=== PATIENT | female | born 1975 | race Caucasian/White ===

== ENCOUNTER → 2016-09-07 | Outpatient (CLI) | payer MEDICAID ==
[~2016-09-07] MED LIST: ALBUTEROL0.09 MG/A2 INH; AMOXICILLIN500 MG PO; ANAPROX DS550 MG PO; ATIVAN0.5 MG PO; ATIVAN1 MG PO; AUGMENTIN 875-875 MG PO; AUGMENTIN 875875 MG PO; BACTRIM DS 8001 TA1 PO; CIPROFLOXACIN500 MG PO; FLEXERIL5 MG PO; METOPROLOL SUCC25 M2 PO; MOBIC15 MG PO; MOTRIN800 MG PO; Meclizine25 MG PO; NKHM; NORCO 325 MG-51 TAB PO; PARAFON FORTE500 MG PO; PEPCID20 MG PO; PHENERGAN W/DM120 ML PO; PREDNICOT10 MG PO; PREDNICOT20 MG PO; PREVACID15 M1 PO; PREVACID30 M1 PO; PREVACID30 MG PO; PROAIR HFA0.09 MG/AC INH; ROBITUSSIN AC 110 ML PO; TRAMADOL HCL50 MG PO; VIIBRYD40 PO; VISTARIL25 M1 PO; VITAMIN D32000 UNIT PO; VITAMIN D50000 I3 PO; VOLTAREN50 M1 PO; XANAX0.25 MG PO; ZANTAC15 MG/ML PO; ZITHROMAX Z PA250 MG PO; ZOFRAN4 MG PO; Zofran4 MG PO
[2016-09-07 10:27] LABS: C-REACTIVE PROTEIN 0.59 MG/DL (0-0.3); FREE THYROXIN INDEX/T7 2.7 (1.5-5.4); THYROXINE (T4) TOTAL 8.4 ug/dl (4.8-13.9); URIC ACID 4.6 mg/dL (2.6-6.0)
[2016-09-07 10:35] LABS: THYROID STIM HORMONE (HS) 2.18 uIU/ml (0.358-4.75)
[2016-09-08 07:12] LABS: RHEUMATOID ARTHRITIS FACTOR <10.0 IU/mL (0.0-13.9)
[2016-09-08 21:05] LABS: LUPUS DRVVT 42.3 sec (0.0-44.0); LUPUS REFLEX INTERPRETATION Comment: (.); PTT-LA 36.1 sec (0.0-43.6)
== END | disposition home or self-care (01) ==
LOC: LAB 09:28
PROVIDERS: Emergency Medicine
DX: R53.83 Other fatigue (principal)

== ENCOUNTER → 2017-09-29 | Outpatient (CLI) | payer OTHER | END | disposition home or self-care (01) | LOC: RAD 12:43 | DX: M25.512 Pain in left shoulder (principal) ==

== ENCOUNTER → 2018-05-03 | Outpatient (CLI) | payer OTHER | END | disposition home or self-care (01) | LOC: RAD 10:30 | DX: M43.8X2 Other specified deforming dorsopathies, cervical region (principal); M25.512 Pain in left shoulder; M79.602 Pain in left arm; R20.0 Anesthesia of skin; M54.6 Pain in thoracic spine ==

== ENCOUNTER 2018-09-13 19:25 | Emergency (ER) | payer OTHER ==
[~2018-09-13] VITALS: Ht 162.5 cm; Wt 79.4 kg
[2018-09-13 19:29] VITALS: BP 109/73
[2018-09-13 20:09] LABS: ALBUMIN 3.3 gm/dl (3.1-4.5); ALKALINE PHOSPHATASE 96 U/L (45-117); BUN 10 mg/dl (7-24); CHLORIDE 104 mmol/L (98-107); CREATININE 0.66 mg/dL (0.55-1.02); LIPASE 40 U/L (73-393); POTASSIUM 3.1 mmol/L (3.5-5.1); SGOT/AST 15 IU/L (3-35); SGPT/ALT 20 U/L (12-78); SODIUM 138 mmol/L (136-145); TOTAL PROTEIN 7.2 gm/dL (6.4-8.2)
[2018-09-13 20:31] LABS: BASO % 0.2 % (0.0-1.0); EOS % 0.2 % (1.0-4.0); HEMATOCRIT 42.1 % (37.0-47.0); HEMOGLOBIN 13.5 g/dl (12.0-16.0); LYMPH # 0.8 10*3/uL (1.3-4.4); LYMPH % 7.3 % (27.0-41.0); MEAN CELL VOLUME 81.7 fl (81.0-99.0); MEAN CORPUSCULAR HGB 26.2 pg (27.0-31.0); MEAN CORPUSCULAR HGB CONC 32.1 g/dl (33.0-37.0); MONO # 0.8 10*3/uL (0.1-1.0); MONO % 7.6 % (3.0-9.0); NEUT # 8.9 10*3/uL (2.3-7.9); NEUT % 84.3 % (47.0-73.0); PLATELET COUNT AUTOMATED 249 10*3/uL (130-400); RED BLOOD COUNT 5.15 10*6/uL (4.10-5.10); RED CELL DISTRI WIDTH 13.7 % (0-14.5); WHITE BLOOD COUNT 10.6 10*3/uL (4.8-10.8)
== END 2018-09-13 21:05 | disposition home or self-care (01) ==
LOC: ED 19:25
PROVIDERS: Student in an Organized Health Care Education/Training Program
DX: R11.2 Nausea with vomiting, unspecified (principal); R19.7 Diarrhea, unspecified; R52 Pain, unspecified; J45.909 Unspecified asthma, uncomplicated; E78.5 Hyperlipidemia, unspecified; Z91.048 Other nonmedicinal substance allergy status; Z88.8 Allergy status to other drugs, medicaments and biological substances; Z79.2 Long term (current) use of antibiotics; Z90.49 Acquired absence of other specified parts of digestive tract; Z87.891 Personal history of nicotine dependence

== ENCOUNTER 2022-11-25 08:48 | Emergency (ER) | payer BC ==
[~2022-11-25] VITALS: Ht 162.5 cm; Wt 67.6 kg
[2022-11-25 09:59] LABS: BASO % 0.4 % (0.0-1.0); EOS # 0.1 10*3/uL (0.0-0.4); EOS % 1.2 % (1.0-4.0); HEMATOCRIT 44.2 % (37.0-47.0); LYMPH # 1.5 10*3/uL (1.3-4.4); LYMPH % 18.7 % (27.0-41.0); MEAN CELL VOLUME 81.3 fl (81.0-99.0); MEAN CORPUSCULAR HGB 26.7 pg (27.0-31.0); MEAN CORPUSCULAR HGB CONC 32.8 g/dl (33.0-37.0); MEAN PLATELET VOLUME 9.8 fl (9.6-12.3); MONO # 0.8 10*3/uL (0.1-1.0); MONO % 9.5 % (3.0-9.0); NEUT # 5.6 10*3/uL (2.3-7.9); NEUT % 69.8 % (47.0-73.0); PLATELET COUNT AUTOMATED 355 10*3/uL (130-400); RED BLOOD COUNT 5.44 10*6/uL (4.10-5.10); RED CELL DISTRI WIDTH 13.9 % (0-14.5)
[2022-11-25 10:20] LABS: BILIRUBIN Negative (Negative); BLOOD 3+ (Negative); CLARITY Clear (Clear); COLOR Yellow (Yellow); GLUCOSE Negative (Negative); KETONE Trace (Negative); LEUKO ESTERASE Negative (Negative); NITRITE Negative (Negative); SPECIFIC GRAVITY >= 1.030 (1.001-1.030)
[2022-11-25 10:23] LABS: ALKALINE PHOSPHATASE 68 U/L (46-116); BUN 11 mg/dl (9-23); CHLORIDE 103 mmol/L (98-107); CPK 37 U/L (34-171); POTASSIUM 3.4 mmol/L (3.4-5.1); SGPT/ALT 11 U/L (10-49); TOTAL PROTEIN 7.5 gm/dL (6.0-8.0)
[2022-11-25 10:24] LABS: BETA-HCG, QUANT < 3.0 mIU/mL (3-10); ETHYL ALCOHOL < 3.0 mg/dl (<3)
[2022-11-25 10:30] LABS: URINE AMPHETAMINES Negative (1000ng/ml); URINE BARBITURATES Negative (200ng/ml); URINE BENZODIAZEPINES Negative (200ng/ml); URINE CANNABINOIDS (THC) Negative (50ng/ml); URINE COCAINE Negative (300ng/ml); URINE METHADONE Negative (300ng/ml); URINE OPIATES Negative (300ng/ml); URINE PHENCYCLIDINE Negative (25ng/ml)
[2022-11-25 10:33] LABS: BACTERIA 2+; RBC 31-40 rbc/hpf (0-2)
[2022-11-25 10:34] LABS: MUCOUS 2+
[2022-11-25 11:59] VITALS: BP 130/91
== END 2022-11-25 13:50 ==
LOC: ED 08:48
PROVIDERS: Emergency Medicine
DX: F43.21 Adjustment disorder with depressed mood (principal); Z20.822 Contact with and (suspected) exposure to COVID-19; Z91.048 Other nonmedicinal substance allergy status; Z88.8 Allergy status to other drugs, medicaments and biological substances; Z90.49 Acquired absence of other specified parts of digestive tract; Z87.891 Personal history of nicotine dependence

== ENCOUNTER 2024-02-13 09:13 | Emergency (ER) | payer SELFPAY ==
[~2024-02-13] VITALS: Ht 162.5 cm; Wt 72.6 kg
[2024-02-13 09:32] VITALS: BP 182/95
[2024-02-13] MEDS ORDERED: Ketorolac Tromethamine 30 MG/ML VIAL IM ONE (11:15)
[2024-02-13] MEDS ORDERED: NAPROSYN500 MG PO (12:33)
== END 2024-02-13 12:54 | disposition home or self-care (01) ==
LOC: ED 09:13
DX: M25.511 Pain in right shoulder (principal); F41.9 Anxiety disorder, unspecified; J45.909 Unspecified asthma, uncomplicated; Z88.8 Allergy status to other drugs, medicaments and biological substances; Z90.49 Acquired absence of other specified parts of digestive tract; Z98.51 Tubal ligation status; Z98.890 Other specified postprocedural states